=== PATIENT | male | born 1945 | race Caucasian/White ===

== ENCOUNTER 2017-04-02 15:06 | Emergency (ER) | payer MEDICARE, OTHER ==
[2017-04-02 15:08] VITALS: BP 160/82; PULSE 71; RESP 16; TEMP 97.7; O2SAT 97
[2017-04-02] MEDS ORDERED: SODIUM CHLORIDE 0.9% FLUSH 10 ML FLUSH IV FLUSH PRN (15:45)
--- NOTE | 2017-04-02 15:55 | PD ---
HPI Chief Complaint: Skin Problem Time Seen by Provider: 15:34 Travel History International Travel<30 days: No Contact w/Intl Traveler<30days: No Traveled to known affect area: No History of Present Illness HPI 71-year-old male presents the emergency department with several complaints. Patient is here visiting from [place] through May. Patient given 4 worsening generalized dry red not particularly itchy rash to the forearms, and on the left cheek. They stated also is on the back and trunk. Patient recently came down from [place] week ago. Patient states recent kidney stone to the right kidney requiring a stent, and history of gout with gouty kidney stone in the past. Patient currently has 6 out of 10 right great toe pain for the past week. Patient had a urinary tract infection previously treated with Bactrim which she finished one week prior to this visit. Patient also states recent elevated potassium of 5.6, and he was told to discontinue his potassium citrate which she was taking supplementally. Patient also states he was on Flomax 0.4 mg daily which she stopped as he felt that may have contributed to his gout flare which started approximately one week ago. Patient denies recent fever, chills, or exposure. He has a questionable history of increased creatinine and uric acid in the past. Patient currently not on medication for his gout or his uric acid. Patient has no chest congestion, chest pain, abdominal pain, nausea, vomiting, or other symptoms. Patient feels no signs of urinary issues at this time. He has no known drug allergies. PFSH Social History Alcohol Use: No Tobacco Use: No Substance Use: No Allergies-Medications (Allergen,Severity, Reaction): Coded Allergies: No Known Allergies (Unverified , 04/02/17) Reported Meds & Prescriptions Reported Meds & Active Scripts Active Reported Vitamin D-1000 (Cholecalciferol) 1,000 Unit Tab 1,000 Units PO DAILY Tamsulosin (Tamsulosin HCl) 0.4 Mg Cap 0.4 Mg PO HS Oxybutynin ER 24 HR (Oxybutynin Chloride) 10 Mg Tab 10 Mg PO DAILY Metoprolol Tartrate 50 Mg Tab 50 Mg PO TID Metoprolol Tartrate 100 Mg Tab 100 Mg PO DAILY Review of Systems Except as stated in HPI: all other systems reviewed are Neg General / Constitutional: No: Fever, Chills Eyes: No: Visual changes HENT: No: Headaches Cardiovascular: No: Chest Pain or Discomfort Respiratory: No: Shortness of Breath Gastrointestinal: No: Nausea, Vomiting, Diarrhea, Abdominal Pain Genitourinary: No: Dysuria Musculoskeletal: Positive: Arthralgias, Pain (see history present illness), No : Limited ROM Skin: Positive Rash, Positive Dryness, No Itching Neurologic: No: Weakness Psychiatric: No: Depression Endocrine: No: Polydipsia Hematologic/Lymphatic: No: Easy Bruising Physical Exam Narrative GENERAL: Patient appears in no acute distress. SKIN: Warm and dry. Normal color. Normal turgor. Patient has a diffuse, dry, erythematous, patchy rash consistent with mild eczema versus possible reaction to recent sulfa medication. It is not particularly pruritic. It is not wet or vesicular in any way. HEAD: Atraumatic. Normocephalic. EYES: Pupils equal and round. No scleral icterus. No injection or drainage. ENT: No nasal bleeding or discharge. Mucous membranes pink and moist. Pharynx is clear. Airways patent. NECK: Trachea midline. Supple and nontender CARDIOVASCULAR: Regular rate and rhythm. RESPIRATORY: No accessory muscle use. Clear to auscultation. Breath sounds equal bilaterally. GASTROINTESTINAL: Abdomen soft, non-tender, nondistended. Hepatic and splenic margins not palpable. MUSCULOSKELETAL: Extremities without clubbing, cyanosis, or edema. No obvious deformities. Patient has mild erythema and warmth over the right great toe consistent with gouty arthritis. Pain is currently minimal unless he is ambulatory. No tophi noted. NEUROLOGICAL: Awake and alert. No obvious cranial nerve deficits. Motor grossly within normal limits. Five out of 5 muscle strength in the arms and legs. Normal speech. PSYCHIATRIC: Appropriate mood and affect; insight and judgment normal. Data Data Last Documented VS Vital Signs Date Time Temp Pulse Resp B/P (MAP) Pulse Ox O2 Delivery O2 Flow Rate FiO2 04/02/17 16:08 74 131/63 (85) 04/02/17 15:08 97.7 16 97 Orders Orders Complete Blood Count With Diff (04/02/17 15:43) Comprehensive Metabolic Panel (04/02/17 15:43) Iv Access Insert/Monitor (04/02/17 15:43) Ecg Monitoring (04/02/17 15:43) Oximetry (04/02/17 15:43) Sodium Chloride 0.9% Flush (Ns Flush) (1/27/18 15:45) Uric Acid (04/02/17 15:43) Labs Laboratory Tests Test 04/02/17 15:50 White Blood Count 11.6 TH/MM3 Red Blood Count 4.54 MIL/MM3 Hemoglobin 13.2 GM/DL Hematocrit 40.5 % Mean Corpuscular Volume 89.3 FL Mean Corpuscular Hemoglobin 29.1 PG Mean Corpuscular Hemoglobin Concent 32.6 % Red Cell Distribution Width 13.7 % Platelet Count 271 TH/MM3 Mean Platelet Volume 7.9 FL Neutrophils (%) (Auto) 66.6 % Lymphocytes (%) (Auto) 20.4 % Monocytes (%) (Auto) 10.7 % Eosinophils (%) (Auto) 1.9 % Basophils (%) (Auto) 0.4 % Neutrophils # (Auto) 7.7 TH/MM3 Lymphocytes # (Auto) 2.4 TH/MM3 Monocytes # (Auto) 1.2 TH/MM3 Eosinophils # (Auto) 0.2 TH/MM3 Basophils # (Auto) 0.0 TH/MM3 CBC Comment DIFF FINAL Differential Comment Blood Urea Nitrogen 30 MG/DL Creatinine 2.10 MG/DL Random Glucose 102 MG/DL Total Protein 8.3 GM/DL Albumin 3.3 GM/DL Calcium Level 8.4 MG/DL Alkaline Phosphatase 76 U/L Aspartate Amino Transf (AST/SGOT) 26 U/L Alanine Aminotransferase (ALT/SGPT) 34 U/L Total Bilirubin 0.4 MG/DL Sodium Level 139 MEQ/L Potassium Level 4.1 MEQ/L Chloride Level 104 MEQ/L Carbon Dioxide Level 26.6 MEQ/L Anion Gap 8 MEQ/L Estimat Glomerular Filtration Rate 31 ML/MIN Uric Acid 7.4 MG/DL [facility] Medical Decision Making Medical Screen Exam Complete: Yes Emergency Medical Condition: Yes Medical Record Reviewed: Yes Differential Diagnosis Sulfa rash, reports of hypercholesterolemia, gouty arthritis, history of high creatinine. History increased uric acid. Narrative Course Patient is medically stable at time of exam. Labs ordered including CBC, CMP, uric acid. CBC is unremarkable except for slight leukocytosis of 11.6. Chemistries unremarkable except for BUN of 30, creatinine of 2.10, estimated GFR 31. Potassium was 4.1. Uric acid is notably elevated at 7.4. Calcium is 8.4. Total protein is 8.3, albumin is 3.3. I do not have previous labs to compare to. Patient is felt to have a reactive rash to sulfa treatment he recently had for UTI. Patient will be treated for acute gout with colchicine 0.6 mg one twice a day #2 , with 2 refills. Patient is given a diet to avoid or his gout. He is encouraged to drink plenty of fluids. Patient is recommended to follow up with [place] [facility], to establish with a local primary care physician. Patient can return to the emergency Department with any worsening symptoms as necessary. Diagnosis Primary Impression: Gout Qualified Codes: M10.371 - Gout due to renal impairment, right ankle and foot Additional Impressions: Renal insufficiency Elevated uric acid in blood Referrals: [facility] PO Patient Instructions: General Instructions, Gout (ED), Low Purine Diet (ED) Additional Instructions: CBC is unremarkable except for slight leukocytosis of 11.6. Chemistries unremarkable except for BUN of 30, creatinine of 2.10, estimated GFR 31. Potassium was 4.1. Uric acid is notably elevated at 7.4. Calcium is 8.4. Total protein is 8.3, albumin is 3.3. I do not have previous labs to compare to. Patient is felt to have a reactive rash to sulfa treatment he recently had for UTI. Patient will be treated for acute gout with colchicine 0.6 mg one twice a day #2 , with 2 refills. Patient is given a diet to avoid or his gout. He is encouraged to drink plenty of fluids. Patient is recommended to follow up with [facility], to establish with a local primary care physician. Patient can return to the emergency Department with any worsening symptoms as necessary. Scripts Colchicine (Colcrys) 0.6 Mg Tab 0.6 MG PO BID for Gout for 1 Day, #2 TAB 2 Refills Prov: Ector Thibodeaux MD 04/02/17 Disposition: 01 DISCHARGE HOME Condition: Stable Joel Bahena Apr 02, 2017 15:55
[2017-04-02 16:08] VITALS: BP 131/63; PULSE 74
[2017-04-02] MEDS ORDERED: VITA1000 PO (16:10)
[2017-04-02] MEDS ORDERED: METO100T PO (16:10)
[2017-04-02] MEDS ORDERED: METO50TA PO (16:10)
[2017-04-02] MEDS ORDERED: OXYB10TA PO (16:10)
[2017-04-02] MEDS ORDERED: TAMS0.4C4 PO (16:10)
[2017-04-02 16:25] LABS: AUTOMATED NEUTROPHIL # 7.7 TH/MM3 (1.8-7.7); BASOPHIL % 0.4 % (0.0-2.0); EOSINOPHIL # 0.2 TH/MM3 (0-0.4); EOSINOPHIL % 1.9 % (0.0-4.0); HEMATOCRIT 40.5 % (39.0-51.0); HEMOGLOBIN 13.2 GM/DL (13.0-17.0); LYMPH % 20.4 % (9.0-44.0); LYMPHOCYTE # 2.4 TH/MM3 (1.0-4.8); MEAN CELL VOLUME 89.3 FL (80.0-100.0); MEAN CORPUSCULAR HEMOGLOBIN 29.1 PG (27.0-34.0); MEAN CORPUSCULAR HGB CONC 32.6 % (32.0-36.0); MEAN PLATELET VOLUME 7.9 FL (7.0-11.0); MONO % 10.7 % (0.0-8.0); MONOCYTE # 1.2 TH/MM3 (0-0.9); NEUT % 66.6 % (16.0-70.0); PLATELET COUNT 271 TH/MM3 (150-450); RED BLOOD COUNT 4.54 MIL/MM3 (4.50-5.90); RED CELL DISTRIBUTION WIDTH 13.7 % (11.6-17.2); WHITE BLOOD COUNT 11.6 TH/MM3 (4.0-11.0)
[2017-04-02 16:54] LABS: ALBUMIN 3.3 GM/DL (3.4-5.0); ALT (GPT) 34 U/L (12-78); AST (GOT) 26 U/L (15-37); BICARBONATE 26.6 MEQ/L (21.0-32.0); BLOOD UREA NITROGEN 30 MG/DL (7-18); CALCIUM 8.4 MG/DL (8.5-10.1); CHLORIDE 104 MEQ/L (98-107); GLOMERULAR FILTRATION RATE 31 ML/MIN (>89); GLUCOSE,RANDOM 102 MG/DL (74-106); SODIUM (NA) 139 MEQ/L (136-145)
[2017-04-02 16:57] LABS: ALKALINE PHOSPHATASE 76 U/L (45-117); TOTAL BILIRUBIN ADULT 0.4 MG/DL (0.2-1.0); TOTAL PROTEIN 8.3 GM/DL (6.4-8.2)
[2017-04-02] MEDS ORDERED: COLC0.6T PO (17:24)
== END 2017-04-02 18:11 | disposition home or self-care (01) ==
LOC: NEPC 15:06
DX: M10.371 Gout due to renal impairment, right ankle and foot (principal); N28.9 Disorder of kidney and ureter, unspecified
CPT/HCPCS: 80053; 84550; 85025; 99283